=== PATIENT | female | born 1955 | race Caucasian/White ===

== ENCOUNTER → 2016-05-11 | Outpatient (CLI) | payer BC ==
[~2016-05-11] MED LIST: DEXILANT30 MG PO; FLAGYL500 MG PO; FLONASE NASAL S16 GM NS; GLUMETZA500 MG PO; LEVAQUIN 5500 MG/TA1 PO; LIPITOR20 MG PO; NORCO 325 MG-51 TAB PO
== END ==
LOC: MC.RAD 05-05 07:40
DX: Z12.31 Encounter for screening mammogram for malignant neoplasm of breast (principal)

== ENCOUNTER → 2016-12-12 | Outpatient (CLI) | payer BC | LOC: COL.RAD 12:03 | DX: K57.32 Diverticulitis of large intestine without perforation or abscess without bleeding (principal); E27.8 Other specified disorders of adrenal gland; Z90.49 Acquired absence of other specified parts of digestive tract | CPT/HCPCS: Q9967 ==

== ENCOUNTER 2017-01-03 08:00 | Outpatient (RCR) | payer BC | END 2017-02-22 10:34 | disposition home or self-care (01) | LOC: WSPT 08:00 | DX: G57.02 Lesion of sciatic nerve, left lower limb (principal) ==

== ENCOUNTER → 2017-05-16 | Outpatient (CLI) | payer BC | LOC: MC.RAD 07:07 | DX: Z12.31 Encounter for screening mammogram for malignant neoplasm of breast (principal) ==

== ENCOUNTER 2018-04-16 08:55 | Emergency (ER) | payer MEDICARE ==
[~2018-04-16] VITALS: Ht 167.6 cm; Wt 95.5 kg
[2018-04-16 09:01] VITALS: TEMP 97.6
[2018-04-16] MEDS ORDERED: ZOFRAN ODT4 MG PO ×2 (10:05→11:19)
[2018-04-16] MEDS ORDERED: PERCOCET 325 MG1 TA2 PO (10:05)
[2018-04-16 11:10] VITALS: BP 128/76; PULSE 73
== END 2018-04-16 11:27 | disposition home or self-care (01) ==
LOC: COL.ER 08:55
DX: S52.501A Unspecified fracture of the lower end of right radius, initial encounter for closed fracture (principal); E11.9 Type 2 diabetes mellitus without complications; W00.0XXA Fall on same level due to ice and snow, initial encounter; Y92.009 Unspecified place in unspecified non-institutional (private) residence as the place of occurrence of the external cause
CPT/HCPCS: J2405; J3010; Q4050

== ENCOUNTER 2018-06-06 15:45 | Outpatient (RCR) | payer MEDICARE ==
[~2018-06-06 15:45] MED LIST changes: +PERCOCET 325 MG1 TA2 PO; +ZOFRAN ODT4 MG PO
== END 2018-07-25 10:28 | disposition home or self-care (01) ==
LOC: WSOT 15:45
DX: S52.501D Unspecified fracture of the lower end of right radius, subsequent encounter for closed fracture with routine healing (principal)